=== PATIENT | female | born 1965 | race Two or more races ===

== ENCOUNTER 2016-07-21 08:40 | Emergency (ER) | payer OTHER ==
[~2016-07-21] VITALS: Ht 154.9 cm; Wt 88.0 kg
[~2016-07-21 08:40] MED LIST: ATEN-60 OR; FER325T OR; LEVO75TA6 PO
[2016-07-21 08:52] VITALS: BP 112/68
[2016-07-21] MEDS ORDERED: KETOROLAC TROMETH 60MG/2ML VIAL IM ONE (10:15)
== END 2016-07-21 11:00 | disposition home or self-care (01) ==
LOC: ER 08:43
DX: S93.402A Sprain of unspecified ligament of left ankle, initial encounter (principal); I10 Essential (primary) hypertension; E07.9 Disorder of thyroid, unspecified; Z79.899 Other long term (current) drug therapy; Z88.8 Allergy status to other drugs, medicaments and biological substances; X50.0XXA Overexertion from strenuous movement or load, initial encounter; X50.3XXA Overexertion from repetitive movements, initial encounter; Y93.02 Activity, running; Y99.8 Other external cause status; Y92.89 Other specified places as the place of occurrence of the external cause
CPT/HCPCS: 73610; 96372; 99284; J1885

== ENCOUNTER 2016-09-16 15:22 | Inpatient (IN) | payer OTHER ==
[~2016-09-16] VITALS: Ht 152.4 cm; Wt 88.8 kg
[2016-09-16 16:20] LABS: Basophils # (auto) 0 uL; Basophils % (auto) 0.3 % (0.0-2.0); DEFINITIVE VIEW TRANSMISSION; Eosinophils # (auto) 0.2 uL; Eosinophils % (auto) 2.3 % (0.0-7.0); Hematocrit 36.5 % (36.0-46.0); Hemoglobin 11.7 g/dL (12.2-16.2); Lymphocytes # (auto) 3.1 uL; Lymphocytes % (auto) 29.1 % (10.0-50.0); Mean Corpuscular Volume 75.1 fL (80.0-100.0); Mean Platelet Volume 7.5 fL (7.4-10.4); Monocytes # (auto) 0.7 uL; Neutrophils # (auto) 6.5 uL; Neutrophils % (auto) 61.3 % (37.0-80.0); Platelet Count (auto) 391 10^3/uL (140-450); White Blood Cell 10.6 10^3/uL (4.4-10.8)
[2016-09-16 16:41] LABS: Albumin 3.8 g/dL (3.4-5.0); Alkaline Phosphatase 108 U/L (45-117); Anion Gap 10 (5-15); Aspartate Aminotransferase 17 U/L (15-37); BUN/Creatinine Ratio 13.6; Bilirubin, Total 0.4 mg/dL (0.2-1.0); Blood Urea Nitrogen 11 mg/dL (7-18); Calcium 8.9 mg/dL (8.5-10.1); Carbon Dioxide 28 mmol/L (21-32); Chloride 107 mmol/L (98-107); GFR African American 96 mL/min; GFR Non-African American 79 mL/min; Glucose 121 mg/dL (74-106); Potassium 3.8 mmol/L (3.5-5.1); Sodium 145 mmol/L (136-145); Total Protein 7.9 g/dL (6.4-8.2)
[2016-09-16 16:59] LABS: Red Cell Distribution Width 21.2 % (11.6-16.0)
[2016-09-16 17:13] LABS: Hypochromia Moderate; Platelet Estimate Adequate
[2016-09-16 17:14] LABS: Anisocytosis Moderate
[2016-09-16] MEDS ORDERED: ENOXAPARIN SOD 80 MG/0.8ML SYRINGE SC ONE (19:45)
[2016-09-16] MEDS ORDERED: TEMAZEPAM 15 MG CAP PO PRN (21:15)
[2016-09-16] MEDS ORDERED: HYDROcodone-ACET 5/325MG TAB PO PRN (21:15)
[2016-09-16] MEDS ORDERED: MORPHINE SULF INJ 2 MG/ML SYRINGE 1ML IV PRN ×2 (21:15)
[2016-09-16] MEDS ORDERED: NITROGLYCERIN 0.4 MG SL TAB SL PRN (21:15)
[2016-09-16] MEDS ORDERED: ONDANSETRON HCL 4 MG/2 ML VIAL IV PRN (21:15)
[2016-09-16] MEDS: SODIUM CHLORIDE 0.9% 1,000 ML IV SCH (21:39)
[2016-09-16] MEDS: ATENOLOL 25 MG TAB PO SCH (21:59)
[2016-09-16] MEDS: FERROUS SULFATE 325 MG TAB PO SCH (22:00)
[2016-09-16 22:30] VITALS: BP 137/74
[2016-09-16 22:45] VITALS: BP 137/74
[2016-09-16 22:51] LABS: B-Type Natriuretic Peptide 20.36 pg/mL (0-100)
[2016-09-16 22:58] LABS: Temperature: 21.5 C (20.0-25.0)
[2016-09-17 02:17] VITALS: BP 137/74
[2016-09-17 05:29] VITALS: BP 92/57
[2016-09-17] MEDS: FERROUS SULFATE 325 MG TAB PO SCH ×2 (05:39→14:00)
[2016-09-17 06:21] LABS: Basophils # (auto) 0 uL; Basophils % (auto) 0.2 % (0.0-2.0); DEFINITIVE VIEW TRANSMISSION; Eosinophils # (auto) 0.2 uL; Eosinophils % (auto) 2.6 % (0.0-7.0); Hematocrit 34.6 % (36.0-46.0); Hemoglobin 11.1 g/dL (12.2-16.2); Lymphocytes # (auto) 3.7 uL; Lymphocytes % (auto) 44.8 % (10.0-50.0); Mean Corpuscular Hgb Conc. 32.1 g/dL (32.0-36.0); Mean Corpuscular Volume 74.8 fL (80.0-100.0); Mean Platelet Volume 7.7 fL (7.4-10.4); Monocytes # (auto) 0.7 uL; Neutrophils # (auto) 3.6 uL; Neutrophils % (auto) 43.4 % (37.0-80.0); Platelet Count (auto) 322 10^3/uL (140-450); White Blood Cell 8.2 10^3/uL (4.4-10.8)
[2016-09-17 06:48] LABS: Albumin 3.1 g/dL (3.4-5.0); BUN/Creatinine Ratio 17.5
[2016-09-17 06:50] LABS: Bilirubin, Total 0.4 mg/dL (0.2-1.0); Total Protein 6.6 g/dL (6.4-8.2)
[2016-09-17] MEDS ORDERED: LEVOTHYROXINE SODIUM 25 MCG TAB PO SCH (07:00)
[2016-09-17 07:16] LABS: Microcytosis Moderate; Platelet Estimate Adequate
[2016-09-17 07:17] LABS: Anisocytosis Moderate; Hypochromia Moderate
[2016-09-17 07:18] LABS: Stomatocytes Few
[2016-09-17 07:56] VITALS: BP 103/55
[2016-09-17] MEDS: ATENOLOL 25 MG TAB PO SCH (09:26)
[2016-09-17] MEDS ORDERED: PATIENTS OWN MEDICATION (Levothyroxine Sodium 75 MCG) PO SCH (10:00)
[2016-09-17 12:45] VITALS: BP 115/70
[2016-09-17] MEDS: SODIUM CHLORIDE 0.9% 1,000 ML IV SCH (13:57)
[2016-09-18] MEDS ORDERED: LEVOTHYROXINE SODIUM 100 MCG TAB PO SCH (07:00)
== END 2016-09-17 16:55 | disposition home or self-care (01) | DRG 203 ==
LOC: ER 15:22 → TELE 15:23 → TELE-WESTW 22:30
PROVIDERS: ADMIT Emergency Medicine; ATTEND Internal Medicine
DX: M94.0 Chondrocostal junction syndrome [Tietze] (principal); I10 Essential (primary) hypertension; D64.9 Anemia, unspecified; I34.1 Nonrheumatic mitral (valve) prolapse; Z90.49 Acquired absence of other specified parts of digestive tract; Z79.899 Other long term (current) drug therapy; Z88.8 Allergy status to other drugs, medicaments and biological substances; Z82.49 Family history of ischemic heart disease and other diseases of the circulatory system; Z83.3 Family history of diabetes mellitus; Z87.442 Personal history of urinary calculi; Z95.2 Presence of prosthetic heart valve
CPT/HCPCS: 36415; 71020; 80053; 83880; 84484; 85025; 93005; 93306; 96372

== ENCOUNTER 2017-10-15 21:32 | Inpatient (IN) | payer OTHER ==
[~2017-10-15] VITALS: Ht 152.4 cm; Wt 93.7 kg
[2017-10-15 22:08] LABS: Eosinophils # (auto) 0.3 uL; Hemoglobin 13.2 g/dL (12.2-16.2); Monocytes # (auto) 0.7 uL; Monocytes % (auto) 6.7 % (0.0-12.0)
[2017-10-15 22:08] LABS: Urine Amorphous Crystal FEW /hpf (None Seen); Urine Bacteria NONE SEEN /hpf (None Seen); Urine Blood Negative /uL (Negative); Urine Specific Gravity 1.017 (1.001-1.035); Urine WBC 1 /hpf (0 - 5)
[2017-10-15 22:10] LABS: Basophils # (auto) 0 uL; Basophils % (auto) 0.4 % (0.0-2.0); Hematocrit 39.2 % (36.0-46.0); Lymphocytes # (auto) 3.7 uL; Lymphocytes % (auto) 37.5 % (10.0-50.0); Mean Corpuscular Hemoglobin 27.1 pg (28.0-32.0); Mean Corpuscular Hgb Conc. 33.6 g/dL (32.0-36.0); Mean Corpuscular Volume 80.7 fL (80.0-100.0); Neutrophils # (auto) 5.2 uL; Neutrophils % (auto) 52.4 % (37.0-80.0); Nucleated Red Blood Cells % 0.2 %; Platelet Count (auto) 301 10^3/uL (140-450); Red Blood Cells 4.86 10^6/uL (4.0-5.20); Red Cell Distribution Width 14.1 % (11.8-14.3)
[2017-10-15 22:21] LABS: INR 0.95 (0.9-1.15); Partial Thromboplastin Time 29.1 sec (22.64-33.71); Prothrombin Time 10.4 sec (9.37-12.3)
[2017-10-15 22:23] LABS: Alanine Aminotransferase 115 U/L (13-56); Albumin 3.7 g/dL (3.4-5.0); Anion Gap 8 (5-15); Aspartate Aminotransferase 63 U/L (15-37); BUN/Creatinine Ratio 21.1; Blood Urea Nitrogen 16 mg/dL (7-18); Calcium 9.1 mg/dL (8.5-10.1); Carbon Dioxide 24 mmol/L (21-32); Chloride 111 mmol/L (98-107); GFR African American 103 mL/min; GFR Non-African American 85 mL/min; Glucose 133 mg/dL (74-106); Potassium 4.5 mmol/L (3.5-5.1); Sodium 143 mmol/L (136-145)
[2017-10-15 22:27] LABS: Alkaline Phosphatase 120 U/L (45-117); Bilirubin, Total 0.5 mg/dL (0.2-1.0); Total Protein 7.8 g/dL (6.4-8.2)
[2017-10-16] MEDS ORDERED: SODIUM CHLORIDE 0.9% 1,000 ML IV ONE (07:20)
[2017-10-16] MEDS ORDERED: MORPHINE SULFATE 4 MG/ML SYR/VIAL IV PRN ×3 (07:30→10:45)
[2017-10-16] MEDS ORDERED: ASPirin 81 mg TAB PO ONE (07:30)
[2017-10-16] MEDS ORDERED: FAMOTIDINE (10MG/ML) 2ML VL IV ONE (07:30)
[2017-10-16] MEDS ORDERED: LACTULOSE 20Gm/30ML SOLN PO PRN (10:45)
[2017-10-16] MEDS ORDERED: TEMAZEPAM 15 MG CAP PO PRN (10:45)
[2017-10-16] MEDS ORDERED: LORazepam 0.5 MG TAB PO PRN (10:45)
[2017-10-16] MEDS ORDERED: HYDROcodone-ACET 5/325MG TAB PO PRN (10:45)
[2017-10-16] MEDS ORDERED: ACETAMINOPHEN 500 MG TAB PO PRN (10:45)
[2017-10-16] MEDS ORDERED: PROMETHAZINE HCL 25 MG/ML 1ML IV PRN (10:45)
[2017-10-16] MEDS: PANTOPRAZOLE 40 MG TAB PO SCH (12:03)
[2017-10-16] MEDS: SODIUM CHLORIDE 0.9% 1,000 ML IV SCH ×2 (12:03→23:55)
[2017-10-16 12:46] LABS: Alcohol, Urine < 3.0 mg/dL (0-5); Amphetamine Screen, Urine NEGATIVE (NEGATIVE); Barbiturate Scree,Urine NEGATIVE (NEGATIVE); Benzodiazephine Screen, Urine NEGATIVE (NEGATIVE); Cannabinoid Screen, Urine NEGATIVE (NEGATIVE); Cocaine Screen, Urine NEGATIVE (NEGATIVE); Opiate Scree,Urine NEGATIVE (NEGATIVE); Phencyclidine Screen, Urine NEGATIVE (NEGATIVE)
[2017-10-16] MEDS: FERROUS SULFATE 325 MG TAB PO SCH ×2 (14:00→22:00)
[2017-10-16 16:28] VITALS: BP 125/63
[2017-10-16 21:54] VITALS: BP 124/70
[2017-10-16] MEDS: ATENOLOL 25 MG TAB PO SCH (22:04)
[2017-10-17 05:20] VITALS: BP 124/71
[2017-10-17] MEDS: FERROUS SULFATE 325 MG TAB PO SCH ×2 (06:00→13:53)
[2017-10-17] MEDS ORDERED: LEVOTHYROXINE SODIUM 100 MCG TAB PO SCH (07:00)
[2017-10-17 07:47] LABS: Cholesterol 135 mg/dL (< 200); HDL Cholesterol 44 mg/dL (40-59); LDL Cholesterol 89 mg/dL (< 100); Triglycerides 74 mg/dL (< 150)
[2017-10-17 08:00] VITALS: BP 101/48
[2017-10-17 08:39] LABS: Hepatitis B Surface Antibody Negative
[2017-10-17 09:17] LABS: Hepatitis A Total Antibody Positive
[2017-10-17] MEDS: PANTOPRAZOLE 40 MG TAB PO SCH (09:55)
[2017-10-17] MEDS: ATENOLOL 25 MG TAB PO SCH (09:56)
[2017-10-17] MEDS ORDERED: ASPirin 81 mg TAB PO SCH (10:00)
[2017-10-17] MEDS ORDERED: ENOXAPARIN SOD 40 MG/0.4 ML SYRINGE SC SCH (10:00)
[2017-10-17 12:00] VITALS: BP 119/72
[2017-10-17] MEDS: SODIUM CHLORIDE 0.9% 1,000 ML IV SCH (13:15)
[2017-10-17 13:39] LABS: Hepatitis B Surface Antigen Negative (Negative)
[2017-10-17 13:40] LABS: Hepatitis B Core Total AB Negative; Hepatitis C Antibody Negative (Negative)
== END 2017-10-17 18:20 | disposition home or self-care (01) | DRG 203 ==
LOC: ER 21:32 → TELE 21:33 → TELE-CENTR 10-16 14:17
PROVIDERS: ADMIT Internal Medicine; ATTEND Internal Medicine
DX: M94.0 Chondrocostal junction syndrome [Tietze] (principal); I38 Endocarditis, valve unspecified; E88.81 Metabolic syndrome and other insulin resistance; Z68.41 Body mass index [BMI] 40.0-44.9, adult; I10 Essential (primary) hypertension; M19.90 Unspecified osteoarthritis, unspecified site; E03.9 Hypothyroidism, unspecified; E66.9 Obesity, unspecified; F41.9 Anxiety disorder, unspecified; K59.00 Constipation, unspecified; G47.00 Insomnia, unspecified; R79.89 Other specified abnormal findings of blood chemistry; Z82.49 Family history of ischemic heart disease and other diseases of the circulatory system; Z83.3 Family history of diabetes mellitus; Z87.442 Personal history of urinary calculi; Z90.49 Acquired absence of other specified parts of digestive tract; Z98.51 Tubal ligation status; Z79.899 Other long term (current) drug therapy; Z88.8 Allergy status to other drugs, medicaments and biological substances; Z87.440 Personal history of urinary (tract) infections
CPT/HCPCS: 36415; 71046; 76705; 80053; 80061; 80307; 81001; 82550; 83735; 84443; 84484; 85025; 85379; 85610; 85652; 85730; 86141; 86704; 86706; 86708; 86803; 87340; 93005; 93306; 94761; 96361; 96374; J3490